=== PATIENT | female | born 1975 | race Caucasian/White ===

== ENCOUNTER → 2017-11-18 14:11 | Outpatient (CLI) | payer OTHER, SELFPAY ==
[2017-11-18 16:06] LABS: Erythrocyte Sedimentation Rate 39 mm/hr (0-20)
== END ==
PROVIDERS: Family Provider Family Medicine; PCP Family Medicine; Visit Provider Family Medicine
DX: M79.1 Myalgia (principal)
CPT/HCPCS: 36415; 85652; 86140

== ENCOUNTER → 2018-02-18 07:19 | Outpatient (CLI) | payer OTHER, SELFPAY ==
[2018-02-18 08:00] LABS: Erythrocyte Sedimentation Rate 32 mm/hr (0-20)
[2018-02-18 08:03] LABS: Absolute Lymphocyte Count 1.82 X10^3/ul (0.83-4.51); Absolute Neutrophil Count 5.8 X10^3/uL (2.0-7.7); Basophil# 0.02 X10^3/uL; Basophil% 0.2 % (0-1); Eosinophil# 0.14 X10^3/uL; Eosinophils% 1.7 % (0-5); Hemoglobin 14.1 g/dl (12.0-15.0); Lymphocyte # 1.82 X10^3/ul (4.0); Lymphocyte % 21.8 % (19-41); Mean Corp Hgb Conc 33.6 g/gl (32-36); Mean Corpuscular Hgb 30.9 pg (27.0-32.0); Mean Corpuscular Volume 92.1 fL (81-99); Mean Platelet Vol. 10.1 fl (6.2-12.0); Monocyte# 0.56 X10^3/uL; Monocyte% 6.7 % (0-10); Neutrophil # 5.79 X10^3/uL (2.7-7.7); Neutrophil % 69.2 % (47-70); Platelet Count 178 K/mm3 (150-450); RBC Distribution Width CV 13.6 % (11.6-14.6); RBC Distribution Width SD 45.5 fl (35.1-43.9); Red Blood Count 4.56 M/mm3 (4.2-5.4); White Blood Count 8.4 K/mm3 (4.4-11.0)
[2018-02-18 08:07] LABS: POSITIVE COUNT NO; POSITIVE DIFFERENTIAL NO; POSITIVE MORPHOLOGY NO
[2018-02-18 08:30] LABS: ALB/GLOB Ratio 0.8 RATIO (0.9-2.4); AST(SGOT) 107 U/L (15-37); Alanine Aminotransfer ALT/SGPT 138 U/L (13-56); Albumin, Serum 3.6 g/dL (3.2-5.0); Alkaline Phosphatase 97 U/L (45-117); Anion Gap 6 (5-15); BUN 15 mg/dL (7-18); BUN/Creat Ratio 18.1 RATIO (10-20); Calcium,Total 8.4 mg/dL (8.5-10.1); Chloride 105 mmol/L (98-107); Cholesterol 211 mg/dL (200); Creatinine, Serum 0.83 mg/dL (0.55-1.02); EST Glomerular Filtration Rate 81 mL/min (>60); Est Glom Filt Rate - Afr Amer 98 mL/min (>60); Globulin 4.3 g/dL (2.2-4.2); Glucose 103 mg/dL (74-106); High Density Lipoprotein 48 mg/dL; Magnesium 2.1 mg/dL (1.6-2.6); Potassium 3.3 mmol/L (3.5-5.1); Protein, Total 7.9 g/dL (6.4-8.2); Sodium Level 138 mmol/L (136-145); Thyroid Stim Hormone (TSH) 2.87 uIU/mL (0.358-3.74); Triglycerides 156 mg/dL; Very Low Density Lipoprotein 31 mg/dL (5-40)
[2018-02-18 09:26] LABS: Hemoglobin A1c 5.2 % (4.2-6.3)
[2018-02-19 09:10] LABS: Insulin 27.6 mU/L (2.6-37.6); Vitamin D,25 Hydroxy 29.8 ng/mL (29.95-100.01)
== END ==
PROVIDERS: Family Provider Family Medicine; PCP Family Medicine; Visit Provider Family Medicine
DX: Z00.01 Encounter for general adult medical examination with abnormal findings (principal); N39.0 Urinary tract infection, site not specified; I10 Essential (primary) hypertension; R73.02 Impaired glucose tolerance (oral); E84.8 Cystic fibrosis with other manifestations; R74.8 Abnormal levels of other serum enzymes
CPT/HCPCS: 36415; 80053; 80061; 82306; 83036; 83525; 83735; 84443; 85025; 85652

== ENCOUNTER → 2018-02-18 11:50 | Outpatient (CLI) | payer OTHER, SELFPAY ==
--- NOTE | 2018-02-18 11:54 | BI_ITS ---
MAMMOGRAPHY - BILATERAL SCREENING REASON FOR EXAM: Female, 42 years old. Routine annual screening examination. PERTINENT HISTORY: BASELINE EXAM NO FAM HX NO SX TECHNIQUE: Digital bilateral breast oscar (3D mammographic acquisition) in the CC and MLO projections. 2-D mediolateral oblique (MLO) and craniocaudad (CC) views of both breasts were obtained. CAD: Full Field Digital Mammography with Computer Added Detection was performed. COMPARISON: None. FINDINGS: Breast Composition: The breasts are heterogeneously dense, which may obscure small masses. There is an asymmetric density in the upper outer quadrant of the left breast for which further evaluation by ultrasound would be recommended. There are no suspicious calcifications. No other significant abnormalities are identified. BI/SCREENING MAMM (CAD), BILAT IMPRESSION: Further imaging evaluation recommended, as described above. (E) ASSESSMENT CATEGORY: BIRADS Category 0: Incomplete. Need additional imaging evaluation. A letter regarding these results will be sent to the patient by the facility within 30 days. Approximately 10% of breast cancers are not detected by mammography. A normal mammogram should not delay biopsy of a clinically suspicious abnormality. [id number] Electronically Signed: Maribel Escalona MD at 12:09 EDT Tel , Service support ,
== END ==
PROVIDERS: Family Provider Family Medicine; PCP Family Medicine; Visit Provider Family Medicine
DX: Z12.31 Encounter for screening mammogram for malignant neoplasm of breast (principal)
CPT/HCPCS: 77063; 77067

== ENCOUNTER → 2018-09-22 08:45 | Outpatient (CLI) | payer BC, SELFPAY ==
--- NOTE | 2018-09-22 08:50 | US_ITS ---
STUDY: ULTRASOUND BREAST - LEFT REASON FOR EXAM: Female, 43 years old. Abnormal screening mammogram. TECHNIQUE: Axial and longitudinal images of the LEFT breast were performed with a high resolution ultrasound transducer. COMPARISON: Comparison is made with prior mammogram dated February 18, 2018. FINDINGS: LEFT Breast: The upper outer quadrant of the left breast was examined by ultrasound. There is homogeneous fibroglandular tissue. No solid or cystic mass lesion is seen. US/Breast Limited Unilateral IMPRESSION: Unremarkable sonographic examination of the breast. Routine mammographic follow-up is recommended. ASSESSMENT CATEGORY: BIRADS Category 1: Negative. A letter regarding these results will be sent to the patient by the facility within 30 days. Electronically Signed: Pablo Asencio MD at 10:58 EST Tel [phone], Service support ,
--- OUTSIDE RECORDS SUMMARY | 2018-11-15 10:53 | XMS RPT_ITS ---
:1975 Author Organization [facility] Care Team Providers Name Role Phone Kathy Abdi D.C. Attending Unavailable Nisha Graves Referring Unavailable Nisha Graves Primary Care Unavailable Nisha Graves Attending Unavailable Malys, Nisha Primary Care Unavailable Efren Clarke Attending Unavailable Malys, Nisha Primary Care Unavailable Chani, Monty Attending Unavailable Chani, Monty Referring Unavailable Malys, Nisha Primary Care Unavailable Chani, Monty Attending Unavailable Malys, Nisha Primary Care Unavailable Malys, Nisha Attending Unavailable Malys, Nisha Referring Unavailable Malys, Nisha Primary Care Unavailable PROBLEMS PROBLEMS DATE TYPE CONDITION / CODE ATTENDING STATUS SOURCE 11/18/2017 Unknown M79.1 - Myalgia / Malys, Nisha Active [place] M79.1(ICD-10) [facility] Repository 10/31/2017 Unknown M99.01 - Dossie, Kathy Active [place] [facility] dysfunction of Repository cervical region / M99.01(ICD-10) 10/31/2017 Unknown M99.02 - Dossie, Kathy Active [place] [facility] dysfunction of Repository thoracic region / M99.02(ICD-10) 10/31/2017 Unknown M99.03 - Dossie, Kathy Active [place] [facility] dysfunction of Repository lumbar region / M99.03(ICD-10) PROCEDURES PROCEDURES No Procedure Records FoundRESULTS RESULTS BREAST LIMITED Observed: 09/22/2018 Status: F Source: [place] UNIL[place] 8:50 AM [facility] [place] [facility] Imaging Services [address] [place] [address] Breast Limited Unilateral MR#: [id number] Acct: [id number] Name: MARYJANE RUBIO Rep #: [id number] : 1975 F 43 From: Pablo Asencio MD PCP: Nisha Graves DO Status: REG CLI Study: Breast Limited Unilateral Date of Exam: 09/22/18 Exam# [id number] Ordering Dr: Nisha Graves DO STUDY: ULTRASOUND BREAST - LEFT REASON FOR EXAM: Female, 43 years old. Abnormal screening mammogram. TECHNIQUE: Axial and longitudinal images of the LEFT breast were performed with a high resolution ultrasound transducer. COMPARISON: Comparison is made with prior mammogram dated February 18, 2018. FINDINGS: LEFT Breast: The upper outer quadrant of the left breast was examined by ultrasound. There is homogeneous fibroglandular tissue. No solid or cystic mass lesion is seen. US/Breast Limited Unilateral IMPRESSION: Unremarkable sonographic examination of the breast. Routine mammographic follow-up is recommended. ASSESSMENT CATEGORY: BIRADS Category 1: Negative. A letter regarding these results will be sent to the patient by the facility within 30 days. Electronically Signed: Pablo Asencio MD at 10:58 EST Tel [phone], Service support , CC: Nisha Graves DO Wirer Maintenance: Signed SCREENING MAMM (CAD), Observed: 02/18/2018 Status: F Source: [place] BIL[place] 11:54 AM [facility] [place] [facility] Imaging Services [address] [place] [address] SCREENING MAMM (CAD), BILAT MR#: [id number] Acct: [id number] Name: MARYJANE RUBIO Rep #: [id number] : 1975 F 42 From: Maribel Escalona MD PCP: Nisha Graves DO Status: REG CLI Study: SCREENING MAMM (CAD), BILAT Date of Exam: 02/18/18 Exam# [id number] Ordering Dr: Monty Wilde DO ADDENDUM by Pablo Asencio MD on 02/27/18 at 0815 BI/SCREENING MAMM (CAD), BILAT 02/27/18 0822 Date cc: Nisha Graves DO; Monty Wilde DO * Signed ADDENDUM by Pablo Asencio MD on 02/27/18 at 0815 ADDENDUM This is an amended report. The patient decided to have her ultrasound of the breast performed at an outside institution. Electronically Signed: Pablo Asencio MD at 8:15 EDT Tel [phone], Service support , 02/27/18814 Date cc: Nishasb Graves DO; Monty Chani DO * Signed MAMMOGRAPHY - BILATERAL SCREENING REASON FOR EXAM: Female, 42 years old. Routine annual screening examination. PERTINENT HISTORY: BASELINE EXAM NO FAM HX NO SX TECHNIQUE: Digital bilateral breast oscar (3D mammographic acquisition) in the CC and MLO projections. 2-D mediolateral oblique (MLO) and craniocaudad (CC) views of both breasts were obtained. CAD: Full Field Digital Mammography with Computer Added Detection was performed. COMPARISON: None. FINDINGS: Breast Composition: The breasts are heterogeneously dense, which may obscure small masses. There is an asymmetric density in the upper outer quadrant of the left breast for which further evaluation by ultrasound would be recommended. There are no suspicious calcifications. No other significant abnormalities are identified. BI/SCREENING MAMM (CAD), BILAT IMPRESSION: Further imaging evaluation recommended, as described above. (E) ASSESSMENT CATEGORY: BIRADS Category 0: Incomplete. Need additional imaging evaluation. A letter regarding these results will be sent to the patient by the facility within 30 days. Approximately 10% of breast cancers are not detected by mammography. A normal mammogram should not delay biopsy of a clinically suspicious abnormality. [id number] Electronically Signed: Maribel Escalona MD at 12:09 EDT Tel , Service support , CC: Nisha Graves DO; Monty Wilde DO Wirer Maintenance: Signed ERYTHROCYTE SED RATE Collected: 02/18/2018 Status: F Source: [place] 7:23 AM [facility] [place] TYPE CODE TESTS RESULT OUT OF RANGE REFERENCE UNITS LAB L102.0000 0-20 mm/hr High SED RATE 32 Performed By: #### L101.9900, L100.0100 #### [facility] [address] [place], [address] CBC W/DIFF, AUTOMATED Collected: 02/18/2018 Status: F Source: [place] 7:23 AM [facility] [place] TYPE CODE TESTS RESULT OUT OF RANGE REFERENCE UNITS LAB L100.1000 4.4-11.0 K/mm3 Normal WBC 8.4 LAB L100.1200 4.2-5.4 M/mm3 Normal RBC 4.56 LAB L100.1300 12.0-15.0 g/dl Normal HGB 14.1 LAB L100.1400 37-47 % Normal HCT 42.0 LAB L100.1500 81-99 fL Normal MCV 92.1 LAB L100.1600 27.0-32.0 pg Normal MCH 30.9 LAB L100.1700 32-36 g/gl Normal MCHC 33.6 LAB L100.1810 11.6-14.6 % Normal RDW CV 13.6 LAB L100.1820 35.1-43.9 fl High RDW SD 45.5 LAB L100.1900 150-450 K/mm3 Normal PLT 178 LAB L100.2000 6.2-12.0 fl Normal MPV 10.1 LAB L100.2100 47-70 % Normal NEUT% 69.2 LAB L100.2200 19-41 % Normal LY% 21.8 LAB L100.2300 0-10 % Normal MONO% 6.7 LAB L100.2400 0-5 % Normal EO% 1.7 LAB L100.2500 0-1 % Normal BASO% 0.2 LAB L100.2550 0.0-0.9 % Normal IM GRAN % 0.400 Result Comment: IG% - Immature Granulocytes (promyelocytes, myelocytes and metamyelocytes) > 1% indicates that a LEFT SHIFT is Present. LAB L100.2620 2.0-7.7 X10 3/uL Normal Absolute Neut 5.8 LAB L100.2720 0.83-4.51 X10 3/ul Normal Absolute Lymph 1.82 Performed By: #### L101.9900, L100.0100 #### [facility] [address] [place], [address] COMPREHENSIVE METABOLIC Collected: 02/18/2018 Status: F Source: [facility] 7:23 AM [facility] [place] TYPE CODE TESTS RESULT OUT OF RANGE REFERENCE UNITS LAB L501.0100 74-106 mg/dL Normal GLU 103 Result Comment: Fasting Glucose result from 100 to 125 mg/dL suggests IMPAIRED HOMEOSTASIS per A.D.A. criteria. Please note revised GLUCOSE reference range effective 2017. LAB L501.1000 7-18 mg/dL Normal BUN 15 LAB L501.1100 0.55-1.02 mg/dL Normal CREAT,SERUM 0.83 Result Comment: The validity of the calculated GFR AND GFRAA in patients over 70 years has not been determined. Clinical correlation is essential. LAB L501.1110 >60 mL/min Normal EST GFR 81 Result Comment: Non- GFR Calc LAB L501.1115 >60 mL/min Normal EST GFR - AA 98 Result Comment: GFR Calc LAB L501.1300 10-20 RATIO Normal BUN/CRE 18.1 LAB L501.1500 6.4-8.2 g/dL T Normal PROT 7.9 LAB L501.1800 3.2-5.0 g/dL Normal ALB 3.6 LAB L501.1950 2.2-4.2 g/dL High GLOB 4.3 LAB L501.2000 0.9-2.4 RATIO Low A/G 0.8 LAB L501.2200 8.5-10.1 mg/dL Low CA 8.4 LAB L501.4100 15-37 U/L High AST 107 LAB L501.4305 45-117 U/L Normal ALK P 97 LAB L501.4405 13-56 U/L High ALT 138 LAB L501.4600 0.20-1.00 mg/dL T Normal BILI 0.40 LAB L501.5300 136-145 mmol/L NA Normal 138 LAB L501.5600 3.5-5.1 mmol/L Low K 3.3 LAB L501.5900 98-107 mmol/L CL Normal 105 LAB L501.6100 21.0-32.0 mmol/L Normal CO2 27.0 LAB L501.6200 5-15 Normal GAP 6 Performed By: #### L500.4050, L500.4100, L501.5200, L501.9520 #### [facility] [address] [facility] [place], [place], [id number] LIPID PROFILE Collected: 02/18/2018 Status: F Source: [place] 7:23 AM [facility] [place] TYPE CODE TESTS RESULT OUT OF RANGE REFERENCE UNITS LAB L501.4900 200 mg/dL High CHOL 211 Result Comment: <200 mg/dL Desirable 200-240 mg/dL Borderline >240 mg/dL High Risk LAB L501.5000 mg/dL Normal TRIG 156 Result Comment: The drugs N-Acetylcysteine and Metamizole may falsely depress this assay. Serum Triglycerides Reference Interval Normal <150 mg/dL Borderline high 150 - 199 mg/dL High 200 - 499 mg/dL Very High > or = 500 mg/dL LAB L501.6400 mg/dL Normal HDL 48 Result Comment: The drugs N-Acetylcysteine and Metamizole may falsely depress this assay. Reference Range HDL <40 mg/dL Low HDL Cholesterol HDL >or= 60 mg/dL High HDL Cholesterol LAB L501.6500 0-130 mg/dL High LDL 132 LAB L501.6600 5-40 mg/dL Normal VLDL 31 Performed By: #### L500.4050, L500.4100, L501.5200, L501.9520 #### [facility] [address] [facility] [place], [place], [id number] MAGNESIUM Collected: 02/18/2018 Status: F Source: [place] 7:23 AM [facility] [place] TYPE CODE TESTS RESULT OUT OF RANGE REFERENCE UNITS LAB L501.5200 1.6-2.6 mg/dL Normal MG 2.1 Performed By: #### L500.4050, L500.4100, L501.5200, L501.9520 #### [facility] [address] [place], [address] THYROID STIM HORMONE Collected: 02/18/2018 Status: F Source: [place] ([facility]) 7:23 AM [facility] [place] TYPE CODE TESTS RESULT OUT OF RANGE REFERENCE UNITS LAB L501.9520 0.358-3.74 uIU/mL Normal TSH 2.87 Performed By: #### L500.4050, L500.4100, L501.5200, L501.9520 #### [facility] [address] [place], [address] HEMOGLOBIN A1C Collected: 02/18/2018 Status: F Source: [place] 7:23 AM [facility] [place] TYPE CODE TESTS RESULT OUT OF RANGE REFERENCE UNITS LAB L501.9985 4.2-6.3 % Normal HGB A1C 5.2 Performed By: #### L501.9985 #### [facility] [address] [place], [address] VITAMIN D,25 HYDROXY Collected: 02/18/2018 Status: F Source: [place] 7:23 AM [facility] [place] TYPE CODE TESTS RESULT OUT OF REFERENCE UNITS RANGE LAB L506.1000 29.95-100.01 ng/mL Low Vitamin D 29.8 25-OH Result Comment: Vitamin D 25(OH) Status Range Deficiency <20 ng/mL (50nmol/L) Insuffciency 20 - 30 ng/mL (50 - 75 nmol/L) Sufficiency 30 - 100 ng/mL (75 - 250 nmol/L) Toxicity >100 ng/mL (>250 nmol/L) Performed By: #### L506.1000, [id number] #### [facility] [address] [place], [address] INSULIN Collected: 02/18/2018 Status: F Source: [place] 7:23 AM [facility] [place] TYPE CODE TESTS RESULT OUT OF RANGE REFERENCE UNITS LAB [id number] 2.6-37.6 mU/L Normal Insulin 27.6 Result Comment: Please Note: INSULIN METHOD AND REFERENCE RANGE CHANGE Effective 10/31/2017. Performed By: #### L506.1000, [id number] #### [facility] [address] [place], [address] ERYTHROCYTE SED RATE Collected: 11/18/2017 Status: F Source: [place] 2:13 PM [facility] [place] TYPE CODE TESTS RESULT OUT OF RANGE REFERENCE UNITS LAB L102.0000 0-20 mm/hr High SED RATE 39 Performed By: #### L101.9900 #### [facility] [address] [place], [address] CRP Collected: 11/18/2017 Status: F Source: [place] 2:13 PM [facility] [place] TYPE CODE TESTS RESULT OUT OF RANGE REFERENCE UNITS LAB L501.6710 0.0-3.0 mg/L High 20.40 C-REACTIVE PROT Result Comment: C-Reactive Protein (CRP) provides useful information for the diagnosis, therapy and monitoring of inflammatory processes and associated diseases. For the evaluation of Relative Risk for Cardiovascular Disease, a High Sensitivity CRP (HSCRP) should be ordered. Performed By: #### L501.6710 #### [facility] [address] [place], [address] CHIROPRACTIC REPORT Observed: 10/31/2017 Status: F Source: [place] 4:50 PM [facility] [place] [facility] [address] [place] [address] OFFICE VISIT Date of Service: 10/30/17 MR#: [id number] Acct: [id number] Name: RAMIROMARYJANE N Rep #: [id number] : 1975 Provider: Kathy Bennett D.C. Age/Sex: 42/F Location: [facility] [place] Status: Signed Intake Vital Signs10/30/17 Height 5 ft 5 in 10/30/17 Weight: 235 lb 10/30/17 Body Mass Index (BMI) 39.1 Intake Visit Reasons: NECK PAIN Is patient in pain?: Yes Allergies Latex, Natural Rubber Allergy (Mild, Verified 10/30/17 10:27) Itching HPI NECK PAIN: Chief Complaint: neck pain Visit Number: 1 Details: MARYJANE RUBIO is a 42 year old F who presents with neck pain. Maryjane states that last week she moved and has been carrying wood causing increased neck and mid back pain. Today Maryjane rates her pain a 5/10 and describes it as a tight and sore ache that is constant with some spasms. Lifting, twisting, and looking down all cause increased pain. Her low back has been tight and aching as well. The pain is mild and bilateral, no radiating pain has been noted. Maryjane denies any numbness or tingling. Onset: 10/22/17 Location: neck/low back Duration: frequent Aggravating or associated factors: looking down, lifting, and twisting neck Pain Quality: aching, dull, sharp Exam Musc General: Yes normal gait and joint tenderness (C5, C6, T1, T2, T6, T7, L4, L5); no normal posture (anterior head carriage) Cervical Spine: loss of normal cervical lordosis, pain with cervical ROM with lateral flexion to right and with lateral flexion to left, cervical spasm (R>L levator and upper trap), cervical ROM abnormal lateral flexion to the right decreased and lateral flexion to the left decreased Thoracic/Lumbar Spine: thoracic and lumbar spine normal to inspection, thoraco-lumbar spasm bilaterally in the lower lumbar and on the right in the upper thoracic, pain with thoraco-lumbar ROM with forward flexion Neuro General: alert, awake, oriented x3 Ortho Test CERVICAL Compression pain: Negative Distraction pain: pain Vince's pain: Negative Valsalvas: Negative Shoulder depression pain: Right THORACIC Kemps: Negative Schepelmanns pain: Negative See: Negative LUMBAR Kemps: Negative Valsalvas: Negative Iliac Compression: Positive Office Procedures Chiropractic Treatments Procedures Manipulation: 3-4 regions (C5, T2, T6, L5) Electrical Stimulation: 15 mins Location: thoracic/neck Assessment AND Plan 1. Segmental and somatic dysfunction of cervical region M99.01 Orders Orders: 2. Segmental and somatic dysfunction of thoracic region M99.02 Orders Orders: 3. Segmental and somatic dysfunction of lumbar region M99.03 Orders Orders: Plan Detail Goals Decrease pain and spasm Barriers Repetitive bending and lifting Follow Up PRN 10/31/17 1650 <Electronically signed by Kathy Bennett D.C.> Date Kathy Bennett D.C. Cosigner Signature: Date (if applicable) CC: ALLERGIES ALLERGIES DATE TYPE / CODE NAME / CODE REACTION SEVERITY SOURCE 10/30/2017 Drug Latex, Natural Itching [facility] Allergy/4160 Rubber/[id number] Hospital 12426(SNOMED 526(RXNORM) Repository CT) ENCOUNTERS ENCOUNTERS ADMIT/DISCHARGE ACCOUNT ADMITTING ENCOUNTER LOCATION SOURCE NUMBER CLASS 09/22/2018 [id number] Ambulatory [place] 7 [facility] ing:OPUS Repository 02/18/2018 [id number] [place] 9 [facility] ing:OPBI Repository 02/18/2018 [id number] Ambulatory [place] 8 [facility] ing:LAB Repository 11/29/2017 [id number] Ambulatory [place] 9 [facility] ing:RAD.FUTUR Repository E 11/18/2017 [id number] Ambulatory [place] 2 [facility] ing:BFHLAB Repository 10/30/2017/ [id number] Ambulatory BMSBuilding:B [place] 8 3 [place] Repository PAYERS PAYERS ENCOUNTER GUARANTOR PAYER SUBSCRIBER SOURCE 09/22/2018 MARYJANE Seth Primary MARYJANE [id number] Insurance:ANTHEMPolic BRITTNEYB: Rajan CANO y [place]: [id number] [id number] Repository [address]Duv: 330) Date:6608-72-62MS [phone] () [address], [place] [address]GM: 09/22/2018 Secondary NOT GIVENUNK [place] Insurance:SELF PAY [facility] Number: Effective Repository Date:2018 02/18/2018 MARYJANE Seth Primary Insurance:[facility] MARYJANE Hoffmann [id number] [facility] [id number] Number: Repository [phone]: (124) [id number] [phone] (HP) Date:4336-02-93W[address] [address], [place] [address]VH: CHECK WEBSITE 02/18/2018 Secondary NOT GIVENUNK [place] Insurance:SELF PAY [facility] Number: Effective Repository Date:2018-02-18 02/18/2018 MARYJANE Seth Primary Insurance:[facility] MARYJANE Hoffmann [facility] [address] [id number] [address]Pqe: Number: Repository [id number] (HP) Date:7898-51-69FR [address] [address], [place] [address]JB: CHECK WEBSITE 02/18/2018 Secondary NOT GIVENUNK [place] Insurance:SELF PAY [facility] Number: Effective Repository Date:2018-02-18 11/29/2017 MARYJANE Seth Primary Insurance:[facility] MARYJANE Seth [place] [facility]: [address] [id number] [facility] Medical Center [address]Heg: Number: Repository [id number] (HP) Date:7252-33-39PP [address] [address], [place] [address]SS: CHECK WEBSITE 11/29/2017 Secondary NOT GIVENUNK [place] Insurance:SELF PAY [facility] Number: Effective Repository Date:2017-11-29 11/18/2017 MARYJANE Seth Primary Insurance:[facility] MARYJANE Seth [place] [facility]: [address] [id number] [address]Ifw: Number: Repository [id number] (HP) Date:0027-04-91DD [address] [address], [place] [address]WF: CHECK WEBSITE 11/18/2017 Secondary NOT GIVENUNK [place] Insurance:SELF PAY [facility] Number: Effective Repository Date:2017-11-18 10/30/2017 MARYJANE Seth Primary Insurance:[facility] MARYJANE Seth [place] [id number] [facility] [id number] Hospital [address]Xmd: (330) Number: Repository [phone] () [id number] Date:3810-57-32EQ [address] [address]KNN[place], [place] [address]DE: CHECK WEBSITE 10/30/2017 Secondary NOT GIVENUNK [place] Insurance:SELF PAY [facility] Number: Effective Repository Date:2017-10-30
== END ==
PROVIDERS: Family Provider Family Medicine; PCP Family Medicine; Referring Provider Family Medicine; Visit Provider Family Medicine
DX: R92.8 Other abnormal and inconclusive findings on diagnostic imaging of breast (principal)
CPT/HCPCS: 76642